=== PATIENT | female | born 2000 | race Caucasian/White ===

== ENCOUNTER 2024-08-14 23:21 | Emergency (ER) | payer OTHER, MEDICARE, SELFPAY ==
--- OUTSIDE RECORDS SUMMARY | 2024-08-14 23:24 | XMS_ITS | Clinical Summary ---
Author Organization [facility] Address [address] [place] [id number] Care Team Providers Care Plush Brusher Name Role Phone Pcp, No Unavailable Unavailable Pcp, No Primary Care Provider Unavailabl e Allergies No known active allergies Medications durable medical equipment (DME)Indications: Carpal tunnel syndrome, right,Encounter related to worker's compensation claim quickfit wrist II, univ, RT 1 Each 3 Active naproxen (NAPROSYN) 500 mg tabletIndications :Neuropathic pain of finger, right,Carpal tunnel syndrome on right Take 1 Tablet (500 mg) by mouth every 12 hours if needed for Pain. 10 Tablet 4 Active Active Problems Problem Noted Date Diagnosed Date Elevated blood pressure read ing without diagnosis of hypertension 12/25/2016 Scabies 07/31/2016 Severe episode of recurrent major depressive disorder, without psychotic features 10/24/2015 Poor nutrition 07/05/2015 Easy bruisability 07/05/2015 Abdominal pain, left lower quadrant 07/05/2015 Encounters Date Type Department Care Team Description 08/14/2024 1:50 PM CDT Office Visit [facility] [address] [place] [address] Occ Med (left foot injury //works at [employer] in [place], [place]) 08/14/2024 Travel 05/21/2024 11:30 AM [employer] - 05/21/2024 11:59 PM [employer] Hospital Encounter [facility] [address] [place] [address] Melissa Akers NP Abdominal pain, RUQ (right upper quadrant) 05/21/2024 10:30 AM [employer] Office Visit [facility] [address] [place], [place] [address] Melissa Akers, UNION REPRESENTATIVE Abdominal Pain 05/21/2024 Travel from Last 3 Months Immunizations Immunization Administration Dates Next Due DTaP 05/29/2004, 2,05/14/2000,02/19,1999 HIB-HepB (Comvax) 05/14/2000,02/20/2000,12/11/19 00 HPV 9 (Gardasil 9) 10/18/2013,01/19/2013, 012 Inactivated Polio Vaccine 05/29/2004,12/2000,02/20/2000,12/10 Influenza A (H1N1), Inactivated 03/07/2009 Influenza, IIV4 12/31/2016 MMR 05/29/2004,10/18/2000 Meningococcal Vaccine (Menactra) 10/19/2011 Pneumococcal conj 7-Valent (Prevnar 7) 2 Tdap 10/19/2011 Tuberculin (PPD) 08/22/2019,08/18/2019, 4 Varicella Vaccine 04/25/2007,10/14/2001 Social History Tobacco Use Types Packs/Day Years Used Date Smoking Tobacco: Never Smokeless Tobacco: Never Alcohol Use Standard Drinks/Week Comments Never 0 (1 standard drink = 0.6 oz pur e alcohol) PHQ-2 Answer Date Recorded PHQ-2 TOTAL SCORE 0 11/04/2021 Interpersonal Safety Answer Date Record ed Are you being hit, kicked, p ushed or yelled at (see row info)? No 07/05/2023 Interpersonal Safety Abuse 12 - 18 Not on file 07/05/2023 Interpersonal Safety Ambulatory Vulnerability No t on file 07/05/2023 Comments No Sex and Gender Information Value Date Recorded Sex Assigned at Not on file Legal Sex Female 7:09 PM CDT Gender Identity Not on file Sexual Orientation Not on file Obstetrics History Last Filed Vital Signs Vital Sign Reading Time Taken Comments Blood Pressure 122/71 08/14/2024 1:45 PM CDT Pulse 83 08/14/2024 1:45 PM CDT Temperature 36.7 C (98 F) 08/14/2024 1:45 PM CDT Respiratory Rate 16 08/14/2024 1:45 PM CDT Oxygen Saturation 98% 08/14/2024 1:45 PM CDT Inhaled Oxygen Concentration - - Weight 74.4 kg (164 lb) 08/14/2024 1:45 PM CDT Height 160 cm (5' 3) 07/15/2023 10:54 AM CDT Body Mass Index 29.05 07/15/2023 10:54 AM CDT Plan of Treatment Health Maintenance Due Date Last Done Comments HIV for age 15-65 10/16/2014 Chlamydia for age 16-24 2015 Hepatitis C screening for age 18-79 10/16/2017 Pap test for age 21-65 10/16/2020 Tetanus booster 10/18/2021 10/19/2011 Depression screening for age 12+ 11/04/2022 11/04/2021 COVID-19 vaccine series ( season) 2023 BMI (ht and wt on same day) for age 18+ 07/14/2024 07/15/2023, 07/13/2022, 06/04/2022, Additional history exists Influenza Vaccine (Season Ended) 2024 12/31/2016 Pneumococcal series for age 6-49 Aged Out 04/18/2001 No longer eligible based on patient's age to complete this topic Tdap Completed 10/19/2011 HPV series for age 9-26 Completed 10/19/19 14, 01/19/2013, 10/19/2011 Procedures Procedure Name Priority Date/Time Associated Diagnosis Comments CT ABDOMEN PELVIS W STAT 05/21/2024 1 :09 PM [employer] Abdominal pain, RUQ (right upper quadrant) RED CELL MORPHOLOGY STAT 05/21/2024 1 1:18 AM [employer] Abdominal pain, RUQ (right upper quadrant) PLATELET ESTIMATE STAT 05/21/2024 11: 18 AM [employer] Abdominal pain, RUQ (right upper quadrant) MANUAL DIFFERENTIAL STAT 05/21/2024 1 1:18 AM [employer] Abdominal pain, RUQ (right upper quadrant) CBC WITH AUTO DIFFERENTIAL STAT 05/21/2024 11:18 AM [employer] Abdominal pain, RUQ (right upper quadrant) URINE STAT 05/21/2024 11:18 AM [employer] Abdominal pain, RUQ (right upper quadrant) BASIC METABOLIC PANEL STAT 05/21/2024 11:18 AM [employer] Abdominal pain, RUQ (right upper quadrant) CBC WITH AUTO DIFFERENTIAL STAT 05/21/2024 11:18 AM [employer] Abdominal pain, RUQ (right upper quadrant) from Last 3 Months Results * CT ABDOMEN PELVIS W (05/21/2024 1:09 PM [employer]) Anatomical Region Laterality Modality Abdomen, Pelvis, AORTA, LIVER, SPLEEN Computed Tomography 05/21/2024 1:22 PM [employer] Impressions 05/21/2024 1:22 PM [employer] No acute abnormality in the abdomen or pelvis. Please note that all CT scans at this facility use dose modulation, iterative reconstruction, and/or weight-based dosing when appropriate to reduce radiation dose to as low as reasonably achievable. Dictated by Faizan Wolff MD @ 05/21/2024 1:22:44 PM (Electronically Signed) Narrative 05/21/2024 1:22 PM [employer] For Patients: As a result of the Century Cures Act, medical imaging exams and procedure reports are released immediately into your electronic medical record. You may view this report before your referring provider. If you have questions, please contact your health care provider. INDICATION: Right upper quadrant pain. TECHNIQUE: CT images of the abdomen and pelvis following intravenous contrast. COMPARISON: None. FINDINGS: No concerning opacities in the visualized lungs. No pleural effusion. The heart size is normal. The liver, gallbladder, spleen, and pancreas are unremarkable. The adrenal gland unremarkable. Very small right inferior pole renal cyst. The stomach is moderately distended. No abnormally dilated loops of bowel. The appendix is unremarkable. No free fluid or free air. Abdominal aorta is normal caliber. No pathologically enlarged lymph nodes. Small fat containing umbilical hernia. Urinary bladder is underdistended. Uterus is retroverted. No aggressive osseous lesions. Procedure Note Faizan Wloff MD - 05/21/2024 For Patients: As a result of the Century Cures Act, medical imagingexams and procedure reports are released immediately into your electronicmedical record. You may view this report before your referring provider.If you have questions, please contact your health care provider. INDICATION: Right upper quadrant pain. TECHNIQUE: CT images of the abdomen and pelvis following intravenous contrast. COMPARISON: None. FINDINGS: No concerning opacities in the visualized lungs. No pleural effusion. Theheart size is normal. The liver, gallbladder, spleen, and pancreas are unremarkable. The adrenal gland unremarkable. Very small right inferior pole renal cyst. The stomach is moderately distended. No abnormally dilated loops of bowel.The appendix is unremarkable. No free fluid or free air. Abdominal aorta is normal caliber. No pathologically enlarged lymph nodes. Small fat containing umbilical hernia. Urinary bladder is underdistended. Uterus is retroverted. No aggressive osseous lesions. IMPRESSION: No acute abnormality in the abdomen or pelvis. Please note that all CT scans at this facility use dose modulation,iterative reconstruction, and/or weight-based dosing when appropriate toreduce radiation dose to as low as reasonably achievable. Dictated by Faizan Wolff MD @ 05/21/2024 1:22:44 PM (Electronically Signed) us Melissa Akers UNION REPRESENTATIVE CT Final Re sult * (ABNORMAL) CBC WITH AUTO DIFFERENTIAL (05/21/2024 11:18 AM [employer]) WHITE BLOOD COUNT 5.2 4.5 - 11.0 thou/cu mm 05/21/2024 12:00 PM [facility] RED BLOOD COUNT 3.67(L) 4.00 - 5.20 mil/cu mm 05/21/2024 12:00 PM [facility] HEMOGLOBIN 9.5(L) 12.0 - 16.0 g/dL 05/21/2024 12:00 PM [facility] HEMATOCRIT 30.7(L) 33.0 - 51.0 % 05/21/2024 12:00 PM [facility] MCV 84 80 - 100 fL 05/21/2024 12:00 PM [facility] MCH 25.9(L) 26.0 - 34.0 pg 05/21/2024 12:00 PM [facility] MCHC 30.9(L) 32.0 - 36.0 g/dL 05/21/2024 12:00 PM [facility] RDW 17.2(H) 11.5 - 15.5 % 05/21/2024 12:00 PM [facility] PLATELET COUNT 295 140 - 440 thou/cu mm 05/21/2024 12:00 PM [facility] MPV 10.9 6.5 - 11.0 fL 05/21/2024 12:00 PM [facility] Blood BLOOD SPECIMEN / Unknown [facility] / Unknown 05/21/2024 11:18 AM [employer] 05/21/2024 11:18 AM [employer] us Melissa Akers NP HEMATOLOGY Final Re sult Performing Organization Address City/[facility]/ZIP Co de Phone Number [facility] [address] [place] [address] * (ABNORMAL) RED CELL MORPHOLOGY (05/21/2024 11:18 AM [employer]) Pathologist Daniel Arroyo 05/21/2024 12:00 PM [facility] RBC COMMENT Present(A) RBC morphology appears normal, RBC morphology within normal limits for newborns. 05/21/2024 12:00 PM [facility] LARGE PLATELETS Present 12:00 PM [facility] Blood BLOOD SPECIMEN / Unknown [facility] / Unknown 05/21/2024 11:18 AM [employer] 05/21/2024 11:18 AM [employer] Melissa Akers NP HEMATOLOGY Final Re sult [facility] [address] [place] [address] * PLATELET ESTIMATE (05/21/2024 11:18 AM [employer]) PLATELET ESTIMATE Adequate Adequate, No estimate 05/21/2024 12:00 PM [facility] Blood BLOOD SPECIMEN / Unknown [facility] / Unknown 05/21/2024 11:18 AM [employer] 05/21/2024 11:18 AM [employer] us Melissa Akers UNION REPRESENTATIVE HEMATOLOGY Final Re sult [facility] [address] [place] [address] * MANUAL DIFFERENTIAL (05/21/2024 11:18 AM [employer]) % NEUTROPHILS 47.0 % 05/21/2024 12:00 PM [facility] % LYMPHOCYTES 40.0 % 05/21/2024 12:00 PM [facility] % MONOCYTES 9.0 % 05/21/2024 12:00 PM [facility] % EOSINOPHILS 4.0 % 05/21/2024 12:00 PM [facility] % BASOPHILS 0.0 % 05/21/2024 12:00 PM [facility] NEUTROPHILS ABSOLUTE 2.4 1.7 - 7.0 thou/cu mm 05/21/2024 12:00 PM [facility] LYMPHOCYTES ABSOLUTE 2.1 0.9 - 2.9 thou/cu mm 05/21/2024 12:00 PM [facility] MONOCYTES ABSOLUTE 0.5 <0.9 thou/cu mm 05/21/2024 12:00 PM [facility] EOSINOPHILS ABSOLUTE 0.2 <0.5 thou/cu mm 05/21/2024 12:00 PM [facility] BASOPHILS ABSOLUTE 0.0 <0.3 thou/cu mm 05/21/2024 12:00 PM [facility] Blood BLOOD SPECIMEN / Unknown [facility] / Unknown 05/21/2024 11:18 AM [employer] 05/21/2024 11:18 AM [employer] us Melissa Akers UNION REPRESENTATIVE HEMATOLOGY Final Re sult [facility] [address] [place] [address] * STAT hCG Urine (05/21/2024 11:18 AM [employer]) ,URIN E Negative Negative 05/21/2024 11:55 AM [employer] [facility] Urine URINE SPECIMEN / Unknown Non-Blood / Unknown 05/21/2024 11:18 AM [employer] 05/21/2024 11:18 AM [employer] us Melissa Akers UNION REPRESENTATIVE URINE Final Re sult Performing Organization Address [facility]/ZIP Co de Phone Number [facility] [address] [place] [address] * (ABNORMAL) STAT Basic Metabolic Panel BMP (05/21/2024 11:18 AM [employer]) SODIUM 141 136 - 145 mmol/L 05/21/2024 12:42 PM [facility] POTASSIUM 4.1 3.5 - 5.1 mmol/L 05/21/2024 12:42 PM [facility] CHLORIDE 106 98 - 107 mmol/L 05/21/2024 12:42 PM [facility] CO2,TOTAL 25 22 - 29 mmol/L 05/21/2024 12:42 PM [facility] ANION GAP 10 5 - 18 05/21/2024 12:42 PM [facility] GLUCOSE 106(H) 70 - 99 mg/dL 05/21/2024 12:42 PM [facility] CALCIUM 9.2 8.8 - 10.4 mg/dL 05/21/2024 12:42 PM [facility] Comment: Reference ranges for this test were updated on 02/08/2024 to reflect our healthy population more accurately. Reference range changes are not retroactively applied to results, but previous results using the same methodology can be interpreted in the context of the new reference range. BUN 13 6 - 20 mg/dL 05/21/2024 12:42 PM [facility] CREATININE 0.57 0.50 - 0.90 mg/dL 05/21/2024 12:42 PM [facility] BUN/CREAT RATIO 23(H) 10 - 20 12:42 PM [facility] eGFR >90 >90 mL/min/1. 73m2 05/21/2024 12:42 PM [facility] Comment:As of 2021, eG FR is calculated by the CKD-EPI creatinine equation without race adjustment. eGFR can be influenced by muscle mass, exercise, and diet. The reported eGFR is an estimation only and is only applicable if the renal function is stable. Blood BLOOD SPECIMEN / Unknown [facility] / Unknown 05/21/2024 11:18 AM [employer] 05/21/2024 11:18 AM [facility] Melissa Akers NP CHEMISTRY Final Re sult [facility] [address] [place] [address] from Last 3 Months Insurance [id number] [id number] [facility] HOW[place]ER [id number] [employer] [address]PT [address] [place] [address] [address] [facility] [id number] Care Teams Plush Brusher Relationship Specialty Start Date End Date Pcp, No . PCP - General 08/22/19 Pcp, No . 08/17/19
[2024-08-14 23:30] VITALS: BP 137/85; PULSE 89; RESP 16; TEMP 36.2; O2SAT 99
--- NOTE | 2024-08-14 23:38 | CRLHL7_ITS ---
For Patients: As a result of the Century Cures Act, medical imaging exams and procedure reports are released immediately into your electronic medical record. You may view this report before your referring provider. If you have questions, please contact your health care provider. INDICATION: Crush foot injury, pain TECHNIQUE: Foot radiograph 3 views left COMPARISON: None FINDINGS: Bone: No acute fractures or aggressive bone lesions are identified. Joint: The visualized hindfoot, midfoot, and forefoot joints are unremarkable in appearance. No significant ankle effusion is seen. Soft tissue: Unremarkable. No radiopaque foreign bodies are seen. IMPRESSION: 1. No acute osseous injuries or abnormalities are noted. Dictated by: Germán Zelaya MD @ 08/15/2024 00:03:05 (Electronically Signed)
--- NOTE | 2024-08-14 23:39 | ED.LOWEXIN ---
HPI - Extremity Injury (Lower) General Chief Complaint: Extremity Pain/Injury, Lower Stated Complaint: L foot pain Time Seen by Provider: 08/14/24 23:22 History of Present Illness HPI Narrative: This 23-year-old female comes in with an injury to her left foot that occurred several days ago at work. There was a heavy object that dropped and landed on her toes of her left foot. She has been able to ambulate on this foot but her pain continues. Related Data Previous Rx's ?Medication ?Instructions ?Recorded ketorolac 10 mg tablet 10 mg PO TID 5 days #15 tabs 08/15/24 Allergies Allergy/AdvReac Type Severity Reaction Status Date / Time No Known Drug Allergies Allergy Verified 08/14/24 23:34 Review of Systems Status of ROS: Reports: 10 or more systems reviewed and unremarkable except as noted in History and below Narrative: Constitutional: No fevers, no weight gain or loss. Eyes: No discharge. No vision changes. HENT: No congestion, no sore throat, no ear pain. Cardiovascular: No chest pain, no palpitations. Respiratory: No shortness of breath, no wheezes, no cough. Gastrointestinal: No abdominal pain, no vomiting, no diarrhea. Genitourinary: No dysuria, no hematuria. Musculoskeletal: Normal range of motion. Skin: No rashes, no pruritis. Neurological: No dizziness, weakness, sensory change, speech change. Endo/Heme/Allergies: No bruising or bleeding. No polydipsia. Pysch: no suicidality, no anxiety, no insomnia. All other systems reviewed and are negative. Exam Narrative: Exam Narrative: Constitutional: Well-developed, well-nourished, no acute distress. HEENT: Normocephalic, atraumatic. Neck: Normal range of motion. Nontender. Supple. Heart: Regular. No murmurs. Normal rate. Intact distal pulses. Lungs: Clear to auscultation. No chest discomfort. No wheezes, rhonchi, or rales. Abdomen: Normal bowel sounds. Nontender. No rebound tenderness. Genitalia: Deferred. Back: No midline tenderness. Normal range of motion. Extremities: Diffuse pain across the distal left foot and toes. No sign of deformity or swelling or bruising. Skin: Intact. No rash. Warm. No erythema or pallor. Neurologic: No altered sensation. No weakness. Alert and oriented. Psychiatric: No suicidality. No anxiety or depression. No insomnia. Nursing notes and vitals signs are reviewed. Const: Vital Signs, click to edit/add: Vital Signs - 24 hr 08/14/24 23:30 Temperature 97.2 F L Pulse Rate [Pulse Oximeter] 89 Respiratory Rate 16 Blood Pressure [Ri ght Upper Arm] 137/85 Pulse Oximetry 99 Oxygen Delivery Me thod Room Air Course Vital Signs Vital signs: Initial Vital Signs Temperature 97.2 F L 08/14/24 23:30 Temperature Source Temporal Artery Scan 08/14/24 23:30 Pulse Rate 89 08/14/24 23:30 Respiratory Rate 16 08/14/24 23:30 Blood Pressure 137/85 08/14/24 23:30 Blood Pressure Mean 102 08/14/24 23:30 Blood Pressure Position Sitting 08/14/24 23:30 Pulse Oximetry 99 08/14/24 23:30 Oxygen Delivery Method Room Air 08/14/24 23:30 Vital Signs Temperature 97.2 F L 08/14/24 23:30 Pulse Rate 89 08/14/24 23:30 Respiratory Rate 16 08/14/24 23:30 Blood Pressure 137/85 08/14/24 23:30 Pulse Oximetry 99 08/14/24 23:30 Oxygen Delivery Method Room Air 08/14/24 23:30 Temperature 97.2 F L 08/14/24 23:30 Pulse Rate 89 08/14/24 23:30 Respiratory Rate 16 08/14/24 23:30 Blood Pressure 137/85 08/14/24 23:30 Pulse Oximetry 99 08/14/24 23:30 Oxygen Delivery Method Room Air 08/14/24 23:30 MDM - Extremity Injury (Lower) MDM Narrative Medical decision making narrative: This patient comes in with injury to her left foot. X-ray images are obtained and by my review show no sign of fracture dislocation. The patient has been ambulatory on her foot and is encouraged to increase activity as tolerated. I did provide a prescription for some tablets of Toradol for symptomatic relief. Discharge Plan Discharge Clinical Impression: Contusion of foot, left Patient Disposition: Home, Self-Care Condition: Stable Additional Instructions: Use Toradol as needed and directed for symptomatic relief. Increase activity as tolerated. Follow up with MD as needed. Prescriptions: New ketorolac 10 mg tablet 10 mg PO TID 5 Days Qty: 15 0RF Stand Alone Forms: MyHealth Info Instructions
--- OUTSIDE RECORDS SUMMARY | 2024-08-15 00:10 | XMS_ITS | Clinical Summary ---
Author Organization [facility] Address [address] [place] [id number] Care Team Providers Care Health Sciences Program Coordinator Name Role Phone Pcp, No Unavailable Unavailable [...] Description 08/14/2024 1:50 PM CDT Office Visit [facility] [address] [place] [phone] Occ Med (left foot injury //works at [employer] in [place], [place]) 08/14/2024 Travel 05/21/2024 11:30 AM REED MAN - 05/21/2024 11:59 PM REED MAN Hospital Encounter [facility] [address] [place] [address] Melissa Akers NP Abdominal pain, RUQ (right upper quadrant) 05/21/2024 10:30 AM REED MAN Office Visit [facility] [address] [place] [phone] Melissa Akers, [employer] WORKER Abdominal Pain 05/21/2024 Travel from Last 3 [...] PELVIS W STAT 05/21/2024 1 :09 PM REED MAN Abdominal pain, RUQ (right upper quadrant) RED CELL MORPHOLOGY STAT 05/21/2024 1 1:18 AM REED MAN Abdominal pain, RUQ (right upper quadrant) PLATELET ESTIMATE STAT 05/21/2024 11: 18 AM REED MAN Abdominal pain, RUQ (right upper quadrant) MANUAL DIFFERENTIAL STAT 05/21/2024 1 1:18 AM REED MAN Abdominal pain, RUQ (right upper quadrant) CBC WITH AUTO DIFFERENTIAL STAT 05/21/2024 11:18 AM REED MAN Abdominal pain, RUQ (right upper quadrant) URINE STAT 05/21/2024 11:18 AM REED MAN Abdominal pain, RUQ (right upper quadrant) BASIC METABOLIC PANEL STAT 05/21/2024 11:18 AM REED MAN Abdominal pain, RUQ (right upper quadrant) CBC WITH AUTO DIFFERENTIAL STAT 05/21/2024 11:18 AM REED MAN Abdominal pain, RUQ (right upper quadrant) from Last 3 Months Results * CT ABDOMEN PELVIS W (05/21/2024 1:09 PM REED MAN) Anatomical Region Laterality Modality Abdomen, Pelvis, AORTA, LIVER, SPLEEN Computed Tomography 05/21/2024 1:22 PM REED MAN Impressions 05/21/2024 1:22 PM REED MAN No acute abnormality in the abdomen or pelvis. Please note that all CT scans at this facility use dose modulation, iterative reconstruction, and/or weight-based dosing when appropriate to reduce radiation dose to as low as reasonably achievable. Dictated by Faizan Wolff MD @ 05/21/2024 1:22:44 PM (Electronically Signed) Narrative 05/21/2024 1:22 PM REED MAN For Patients: As a result of the [...] No aggressive osseous lesions. Procedure Note Faizan Wolff MD - 05/21/2024 For Patients: As a [...] 1:22:44 PM (Electronically Signed) us Melissa Akers [employer]ER CT Final Re sult * (ABNORMAL) CBC WITH AUTO DIFFERENTIAL (05/21/2024 11:18 AM REED MAN) WHITE BLOOD COUNT 5.2 4.5 - 11.0 thou/cu mm 05/21/2024 12:00 PM [facility] RED BLOOD COUNT 3.67(L) 4.00 - 5.20 mil/cu mm 05/21/2024 12:00 PM [facility] HEMOGLOBIN 9.5(L) 12.0 - 16.0 g/dL 05/21/2024 12:00 PM [facility] HEMATOCRIT 30.7(L) 33.0 - 51.0 % 05/21/2024 12:00 PM [facility] MCV 84 80 - 100 fL 05/21/2024 12:00 PM [facility] MCH 25.9(L) 26.0 - 34.0 pg 05/21/2024 12:00 PM [facility] MCHC 30.9(L) 32.0 - 36.0 g/dL 05/21/2024 12:00 PM [facility] RDW 17.2(H) 11.5 - 15.5 % 05/21/2024 12:00 PM [facility] PLATELET COUNT 295 140 - 440 thou/cu mm 05/21/2024 12:00 PM [facility] MPV 10.9 6.5 - 11.0 fL 05/21/2024 12:00 PM [facility] Blood BLOOD SPECIMEN / Unknown [facility] / Unknown 05/21/2024 11:18 AM REED MAN 05/21/2024 11:18 AM REED MAN us Melissa Akers NP HEMATOLOGY Final Re sult Performing Organization Address City/[facility] [address]/ZIP Co de Phone Number [facility] [address] [place] [address] * (ABNORMAL) RED CELL MORPHOLOGY (05/21/2024 11:18 AM REED MAN) Pathologist Daniel Arroyo 05/21/2024 12:00 PM [facility] RBC COMMENT Present(A) RBC morphology appears normal, RBC morphology within normal limits for newborns. 05/21/2024 12:00 PM [facility] LARGE PLATELETS Present 12:00 PM [facility] Blood BLOOD SPECIMEN / Unknown [facility] / Unknown 05/21/2024 11:18 AM REED MAN 05/21/2024 11:18 AM REED MAN Melissa Akers NP HEMATOLOGY Final Re sult [facility] [address] [place] [address] * PLATELET ESTIMATE (05/21/2024 11:18 AM REED MAN) PLATELET ESTIMATE Adequate Adequate, No estimate 05/21/2024 12:00 PM [facility] Blood BLOOD SPECIMEN / Unknown [facility] / Unknown 05/21/2024 11:18 AM REED MAN 05/21/2024 11:18 AM REED MAN us Melissa Akers [employer] SUPPORT WORKER HEMATOLOGY Final Re sult [facility] [address] [place] [address] * MANUAL DIFFERENTIAL (05/21/2024 11:18 AM REED MAN) % NEUTROPHILS 47.0 % 05/21/2024 12:00 PM [facility] % LYMPHOCYTES 40.0 % 05/21/2024 12:00 PM [facility] % MONOCYTES 9.0 % 05/21/2024 12:00 PM [facility] % EOSINOPHILS 4.0 % 05/21/2024 12:00 PM [facility] % BASOPHILS 0.0 % 05/21/2024 12:00 PM [facility] NEUTROPHILS ABSOLUTE 2.4 1.7 - 7.0 thou/cu mm 05/21/2024 12:00 PM [facility] LYMPHOCYTES ABSOLUTE 2.1 0.9 - 2.9 thou/cu mm 05/21/2024 12:00 PM [facility] MONOCYTES ABSOLUTE 0.5 <0.9 thou/cu mm 05/21/2024 12:00 PM [facility] EOSINOPHILS ABSOLUTE 0.2 <0.5 thou/cu mm 05/21/2024 12:00 PM [facility] BASOPHILS ABSOLUTE 0.0 <0.3 thou/cu mm 05/21/2024 12:00 PM [facility] Blood BLOOD SPECIMEN / Unknown [facility] / Unknown 05/21/2024 11:18 AM REED MAN 05/21/2024 11:18 AM REED MAN us Melissa Akers [employer] SUPPORT WORKER HEMATOLOGY Final Re sult [facility] [address] [place] [address] * STAT hCG Urine (05/21/2024 11:18 AM REED MAN) ,URIN E Negative Negative 05/21/2024 11:55 AM REED MAN [facility] Urine URINE SPECIMEN / Unknown Non-Blood / Unknown 05/21/2024 11:18 AM REED MAN 05/21/2024 11:18 AM REED MAN us Melissa Akers [employer] SUPPORT WORKER URINE Final Re sult Performing Organization Address [facility] [address]/ZIP Co de Phone Number [facility] [address] [place] [address] * (ABNORMAL) STAT Basic Metabolic Panel BMP (05/21/2024 11:18 AM REED MAN) SODIUM 141 136 - 145 mmol/L 05/21/2024 12:42 PM [facility] POTASSIUM 4.1 3.5 - 5.1 mmol/L 05/21/2024 12:42 PM [facility] CHLORIDE 106 98 - 107 mmol/L 05/21/2024 12:42 PM [facility] CO2,TOTAL 25 22 - 29 mmol/L 05/21/2024 12:42 PM [facility] ANION GAP 10 5 - 18 05/21/2024 12:42 PM [facility] GLUCOSE 106(H) 70 - 99 mg/dL 05/21/2024 12:42 PM [facility] CALCIUM 9.2 8.8 - 10.4 mg/dL 05/21/2024 12:42 PM [facility] Comment: Reference ranges for this test were updated on 02/08/2024 to reflect our healthy population more accurately. Reference range changes are not retroactively applied to results, but previous results using the same methodology can be interpreted in the context of the new reference range. BUN 13 6 - 20 mg/dL 05/21/2024 12:42 PM [facility] CREATININE 0.57 0.50 - 0.90 mg/dL 05/21/2024 12:42 PM [facility] BUN/CREAT RATIO 23(H) 10 - 20 12:42 PM [facility] eGFR >90 >90 mL/min/1. 73m2 05/21/2024 12:42 PM [facility] Comment:As of 2021, eG FR is calculated by the CKD-EPI creatinine equation without race adjustment. eGFR can be influenced by muscle mass, exercise, and diet. The reported eGFR is an estimation only and is only applicable if the renal function is stable. Blood BLOOD SPECIMEN / Unknown [facility] / Unknown 05/21/2024 11:18 AM REED MAN 05/21/2024 11:18 AM [facility] Melissa Akers NP CHEMISTRY Final Re sult [facility] [address] [place] [address] from Last 3 Months Insurance [facility] [id number] [facility] [place] [id number] [employer] [address] [place] E[place] KOLB [address] [address] [id number] Care Teams Health Sciences Program Coordinator Relationship Specialty Start Date End Date Pcp, No . PCP - General 08/22/19 Pcp, No . 08/17/19
== END 2024-08-15 00:14 | disposition home or self-care (01) ==
LOC: ED 08-15 00:08
PROVIDERS: Emergency Provider Emergency Medicine Emergency Medical Services
DX: S90.32XA Contusion of left foot, initial encounter (principal); W22.8XXA Striking against or struck by other objects, initial encounter
CPT/HCPCS: 73630; 99283; 99284